=== PATIENT | male | born 1945 | race Caucasian/White ===

== ENCOUNTER → 2021-01-08 | Outpatient (CLI) | payer OTHER ==
[~2021-01-08] MED LIST: ASPI-999 PO; PANT40TA52 PO
== END ==
LOC: GIR 16:22
PROVIDERS: ATTEND Family Medicine
DX: Z01.89 Encounter for other specified special examinations (principal)
CPT/HCPCS: 84132

== ENCOUNTER → 2021-04-26 | Outpatient (CLI) | payer MEDICARE | LOC: CARD 11:00 | PROVIDERS: ATTEND Internal Medicine Cardiovascular Disease | DX: I47.1 Supraventricular tachycardia (principal) | CPT/HCPCS: 93225; 93226 ==

== ENCOUNTER → 2021-05-17 | Outpatient (CLI) | payer MEDICARE, OTHER ==
[~2021-05-17] MED LIST changes: +CATHETER FLUSH 10 ML SYR IV PRN
[2021-05-17 09:19] VITALS: BP 145/82
--- NOTE | 2021-05-17 15:59 | STRESS TEST ---
DATE OF SERVICE: 05/17/2021 RESTING AND POST EXERCISE TECHNETIUM-99M TETROFOSMIN SPECT CT IMAGING. CLINICAL DIAGNOSIS: Shortness of breath. ORDERING PHYSICIAN: Dr. Peters. PRIMARY PHYSICIAN: Dr. Frankel. Baseline images were carried out after injection of 10.5 mCi of technetium-99m Tetrofosmin. Subsequently, exercise was carried out on a treadmill. Jm protocol was employed. He exercised for a total of 6 minutes and 40 seconds. After he had indicated that he would not be able to go for more than another minute, 29.9 mCi of technetium-99m Tetrofosmin were injected and the exercise was continued for approximately another minute. There was approximately [address] segment depression following exercise. Premature atrial contractions and brief runs of supraventricular tachycardia were seen in the recovery phase. The patient did not report chest pain. Review of images at rest and following stress indicate a small to moderate amount of inferoseptal ischemia. Gated images show normal global left ventricular systolic function with normal regional wall motion. Left ventricular ejection fraction is calculated to be 74%. Left ventricular end diastolic volume is 69 mL. TID is absent (0.93). CONCLUSIONS: 1. This study is suggestive of a small to moderate amount of inferoseptal ischemia. 2. Normal regional wall motion. 3. Normal global left ventricular systolic function with a calculated ejection fraction of 74%. 4. Brief runs of supraventricular tachycardia in the immediate post-exercise phase. Job ID: [id number] DocumentID: [id number] Dictated Date: 05/17/2021 14:12:24 Blindstitch Machine Operator Date: 05/17/2021 15:58:33 Dictated By: KAREN PETERS MD, MA, FACP, FACC,
== END ==
LOC: CARD 07:45
PROVIDERS: ATTEND Internal Medicine Cardiovascular Disease
DX: R06.02 Shortness of breath (principal)
CPT/HCPCS: 78452; 93017; A9502

== ENCOUNTER → 2021-08-11 | Outpatient (CLI) | payer MEDICARE ==
[~2021-08-11] MED LIST changes: -CATHETER FLUSH 10 ML SYR IV PRN
[2021-08-11 11:48] LABS: ABSOLUTE RETIC # 71 10e9/uL (24-90)
[2021-08-11 12:55] LABS: BASOPHILS % (MANUAL) 0 %; EOSINOPHILS % (MANUAL) 0 %; LYMPHOCYTES % (MANUAL) 44 %; MONOCYTES % (MANUAL) 5 %; NEUTROPHILS % (MANUAL) 24 %; RBC MORPH NORMAL; SMUDGE CELLS SLIGHT
[2021-08-11 15:24] LABS: ATYPICAL LYMPHOCYTES 27 %
[2021-08-11 15:26] LABS: REACTIVE LYMPHOCYTES 0 %
== END ==
LOC: GIR 11:40
PROVIDERS: ATTEND Family Medicine
DX: Z01.89 Encounter for other specified special examinations (principal)
CPT/HCPCS: 85007; 85045; 85055

== ENCOUNTER → 2021-09-21 | Outpatient (CLI) | payer MEDICARE ==
[~2021-09-21] MED LIST changes: +BARIUM SUSPENSION 2.1% (VANILLA SILQ) 450 ML PO ONE; +CATHETER FLUSH 10 ML SYR IV PRN; +HOLD METFORMIN - RECEIVED CONTRAST 20 ML VIAL IV SCH; +IOHEXOL 350 MG/ML 100 ML (OMNIPAQUE 350) VIAL IV ONE; +NS 100 ML (IVPB) BAG IV ONE
--- NOTE | 2021-09-21 11:36 | Diagnostic Imaging Report ---
PROCEDURE: CT chest with contrast, CT abdomen and pelvis with and without contrast. TECHNIQUE: Pre and post intravenous contrast axial imaging of the abdomen and pelvis and post contrast axial imaging of the chest were performed. Auto Exposure Controls were utilized during the CT exam to meet ALARA standards for radiation dose reduction. INDICATION: Leukemia, myeloproliferative disorder. COMPARISON: I have no priors. FINDINGS: CHEST: There is no axillary, hilar, or mediastinal lymphadenopathy. Supraclavicular spaces are unremarkable. No dominant lung mass or suspicious pulmonary nodule. No evidence for edema or pneumonia. No chest effusion. No suspicious soft tissue or osseous chest wall abnormality. The lung volumes are symmetric and normal. ABDOMEN AND PELVIS: Nonfocal spleen is normal in size. Liver, gallbladder, bile ducts, adrenals, and pancreas are negative. There are few bilateral renal parapelvic cysts but no hydronephrosis. A nonobstructing stone within the right lower pole calyx measured 5 mm. There is no abdominopelvic mesenteric or retroperitoneal lymphadenopathy. No perienteric or pericolonic edema. No aneurysm, adenopathy, or mass. The appendix is normal. The unobstructed small and large bowel are nonfocal and nonacute. There is no suspicious or acute bony abnormality. IMPRESSION: 1. Unremarkable CT chest, abdomen, and pelvis. No obstructive features, inflammatory processes, or findings of neoplasm. 2. Nonobstructing right renal calculus. Benign renal parapelvic cysts. Dictated by: Dictated on workstation # [id number]
== END ==
LOC: RAD 10:15
PROVIDERS: ATTEND Internal Medicine Hematology & Oncology
DX: C95.90 Leukemia, unspecified not having achieved remission (principal); D47.1 Chronic myeloproliferative disease; N20.0 Calculus of kidney; N28.1 Cyst of kidney, acquired
CPT/HCPCS: 71260; 74178

== ENCOUNTER 2021-10-12 10:12 | Outpatient (RCR) | payer MEDICARE ==
[2021-08-31 13:03] LABS: BASOPHILS % (AUTO) 0 % (0-10); EOSINOPHILS # (AUTO) 0.1 10^3/uL (0.0-0.3); EOSINOPHILS % (AUTO) 1 % (0-10); HEMATOCRIT 41 % (40-54); HEMOGLOBIN 13.9 g/dL (13.3-17.7); LYMPHOCYTES # (AUTO) 9.3 10^3/uL (1.0-4.0); LYMPHOCYTES % (AUTO) 68 % (12-44); MEAN CORPUSCULAR HEMOGLOBIN 31 pg (25-34); MEAN CORPUSCULAR HGB CONC 34 g/dL (32-36); MEAN CORPUSCULAR VOLUME 90 fL (80-99); MEAN PLATELET VOLUME 8.6 fL (9.0-12.2); MONOCYTES # (AUTO) 0.7 10^3/uL (0.0-1.0); MONOCYTES % (AUTO) 5 % (0-12); NEUTROPHILS # (AUTO) 3.6 10^3/uL (1.8-7.8); NEUTROPHILS % (AUTO) 26 % (42-75); PLATELET COUNT 138 10^3/uL (130-400); WHITE BLOOD COUNT 13.7 10^3/uL (4.3-11.0)
[2021-08-31 13:22] LABS: BILIRUBIN,TOTAL 0.5 MG/DL (0.1-1.0); CALCIUM 9.4 MG/DL (8.5-10.1); CREATININE SERUM 0.91 MG/DL (0.60-1.30); POTASSIUM 4.3 MMOL/L (3.6-5.0); TOTAL PROTEIN 7.3 GM/DL (6.4-8.2)
[2021-09-05 10:14] LABS: IMMUNOFIX PATH REPORT NUMBER Complete (Complete)
[~2021-10-12 10:12] MED LIST changes: -BARIUM SUSPENSION 2.1% (VANILLA SILQ) 450 ML PO ONE; -CATHETER FLUSH 10 ML SYR IV PRN; -HOLD METFORMIN - RECEIVED CONTRAST 20 ML VIAL IV SCH; -IOHEXOL 350 MG/ML 100 ML (OMNIPAQUE 350) VIAL IV ONE; -NS 100 ML (IVPB) BAG IV ONE
== END 2021-10-21 | disposition home or self-care (01) ==
LOC: ONC 10:12
PROVIDERS: ATTEND Internal Medicine Hematology & Oncology
DX: C91.10 Chronic lymphocytic leukemia of B-cell type not having achieved remission (principal)
CPT/HCPCS: 80053; 82784 ×3; 83883; 84165; 85025; 86334; 88377; G0463; 84155; 99214

== ENCOUNTER 2021-10-31 11:24 | Day surgery (SDC) | payer MEDICARE ==
[~2021-10-31] VITALS: Ht 177.8 cm; Wt 94.8 kg
[2021-10-31] VITALS (10 sets, daily range): BP systolic 116–142; BP diastolic 63–92
[2021-10-31 12:23] LABS: ABSOLUTE RETIC # 63 10e9/uL (24-90); BASOPHILS % (AUTO) 0 % (0-10); EOSINOPHILS % (AUTO) 0 % (0-10); HEMATOCRIT 37 % (40-54); HEMOGLOBIN 12.5 g/dL (13.3-17.7); LYMPHOCYTES # (AUTO) 8.1 10^3/uL (1.0-4.0); LYMPHOCYTES % (AUTO) 71 % (12-44); MEAN CORPUSCULAR HEMOGLOBIN 31 pg (25-34); MEAN CORPUSCULAR HGB CONC 34 g/dL (32-36); MEAN CORPUSCULAR VOLUME 93 fL (80-99); MEAN PLATELET VOLUME 9.2 fL (9.0-12.2); MONOCYTES # (AUTO) 0.5 10^3/uL (0.0-1.0); MONOCYTES % (AUTO) 4 % (0-12); NEUTROPHILS # (AUTO) 2.8 10^3/uL (1.8-7.8); NEUTROPHILS % (AUTO) 24 % (42-75); PLATELET COUNT 113 10^3/uL (130-400); RETICULOCYTE % 1.56 % (0.50-2.40); WHITE BLOOD COUNT 11.5 10^3/uL (4.3-11.0)
[2021-10-31] MEDS ORDERED: NS IV 1000 ML 1,000 ML IV STA (12:26)
[2021-10-31] MEDS ORDERED: LIDOCAINE 1% INJ 20 ML VIAL INJ ONE (12:30)
[2021-10-31] MEDS ORDERED: MIDAZOLAM 2 MG/2 ML (VERSED) VIAL IVP ONE (12:30)
[2021-10-31] MEDS ORDERED: fentaNYL INJ 100 MCG/2 ML AMP IVP ONE (12:30)
[2021-10-31 12:45] LABS: INR 1.1 (0.8-1.4); PROTHROMBIN TIME PATIENT 14.5 SEC (12.2-14.7)
[2021-10-31] MEDS ORDERED: LIDOCAINE 1% INJ 20 ML VIAL ONE (12:53)
[2021-10-31] MEDS ORDERED: fentaNYL INJ 100 MCG/2 ML AMP ONE (12:54)
[2021-10-31] MEDS ORDERED: MIDAZOLAM 2 MG/2 ML (VERSED) VIAL ONE (12:54)
[2021-10-31] MEDS ORDERED: NS IV 1000 ML 1,000 ML ONE (12:55)
[2021-10-31 13:03] LABS: BLAST CELLS 1 %; EOSINOPHILS % (MANUAL) 1 %; LYMPHOCYTES % (MANUAL) 74 %; MICROCYTOSIS SLIGHT; MONOCYTES % (MANUAL) 4 %; NEUTROPHILS % (MANUAL) 20 %
--- NOTE | 2021-10-31 13:57 | Pre-Op Note & Conscious Sedat ---
Pre-Operative Progress Note H&P Reviewed The H&P was reviewed, patient examined and no changes noted. Date H&P Reviewed: Oct 31, 2021 Time H&P Reviewed: 12:00 Pre-Op Diagnosis: Leukemia Conscious Sedation Pre-Proced Time 12:00 ASA Score 2 For ASA 3 and 4: Consider anesthesia and medical clearance. Also, for patients with a history of failed moderate sedation consider anesthesia. Airway Lungs Heart ASA score ASA 1: a normal healthy patient ASA 2: a patient with a mild systemic disease (mid diabetes, controlled hypertension, obesity ASA 3: a patient with a severe systemic disease that limits activity (angina, COPD, prior Myocardial infarction) ASA 4: a patient with an incapacitating disease that is a constant threat to life (CHF, renal failure) ASA 5: a moribund patient not expected to survive 24 hrs. (ruptured aneurysm) ASA 6: a declared brain- patient whose organs are being harvested. For emergent operations, add the letter E after the classification Mallampati Classification Grade 2 Sedation Plan Analgesia, Amnesia, Plan communicated to team members, Discussed options with patient/fam, Discussed risks with patient/fam The patient is an appropriate candidate to undergo the planned procedure, sedation, and anesthesia. The patient immediately re-assessed prior to indication. KAT WILL MD Oct 31, 2021 13:57
--- NOTE | 2021-10-31 14:09 | Diagnostic Imaging Report ---
INDICATION: Chronic lymphocytic leukemia. Patient presents for CT-guided bone marrow aspiration and biopsy. Patient brought to the CT suite, placed on the table in prone position. Axial imaging through the pelvis was performed evaluating appropriate entry site. Low back was prepped and draped in usual sterile fashion. The procedure was performed utilizing conscious sedation with radiology nursing and constant patient monitoring. Patient was given total of 50 mcg of fentanyl intravenously and 1 mg of Versed intravenously. Total procedure time was 5 minutes. Small amount 1% lidocaine was utilized for local anesthesia. A bone marrow biopsy needle was advanced and placed with its tip along the posterior cortex of right iliac bone. The needle was advanced through the cortex utilizing the bone marrow drill. 2 bone marrow aspirates were then obtained. The drill was then used to to obtain a bone marrow core. Needle was removed and hemostasis was obtained. Patient tolerated procedure well and left the department in stable condition. IMPRESSION: Successful CT-guided bone marrow aspiration and biopsy, utilizing conscious sedation. Pathology results are currently pending. Dictated by: Dictated on workstation # [id number]
[2021-10-31] MEDS ORDERED: HYDROcodone/APAP 5 MG/325 MG (LORTAB) TAB PO PRN (14:45)
== END 2021-10-31 16:02 | disposition home or self-care (01) ==
LOC: RAD 11:24
PROVIDERS: ATTEND Internal Medicine Hematology & Oncology
DX: C91.10 Chronic lymphocytic leukemia of B-cell type not having achieved remission (principal)
CPT/HCPCS: 36415; 38222; 77012; 85007; 85027; 85045; 85055; 85610; 85730; 88237; 88264; 99156